=== PATIENT | male | born 2000 | race African-American/Black ===

== ENCOUNTER 2021-09-04 17:28 | Emergency (ER) | payer MEDICAID ==
[~2021-09-04] VITALS: Ht 180.3 cm; Wt 91.0 kg
[2021-09-04 17:31] VITALS: BP 167/87
== END 2021-09-04 18:19 | disposition home or self-care (01) ==
LOC: ER 17:28
DX: S01.81XD Laceration without foreign body of other part of head, subsequent encounter (principal); X58.XXXD Exposure to other specified factors, subsequent encounter
CPT/HCPCS: 99282